=== PATIENT | male | born 1970 | race Caucasian/White ===

== ENCOUNTER 2020-01-01 15:31 | Inpatient (IN) | payer BC ==
[~2020-01-01] VITALS: Ht 188 cm; Wt 103.6 kg
[2020-02-11] VITALS (11 sets, daily range): BP systolic 102–132; BP diastolic 53–74; PULSE 58–87; TEMP 97.2–97.9
[2020-02-11] MEDS ORDERED: CARDIZEM CD 18180 MG PO (05:57)
[2020-02-11] MEDS ORDERED: LIPITOR20 MG PO (05:58)
[2020-02-11] MEDS ORDERED: ONE-A-DAY ESSE1 EACH PO (05:58)
--- NOTE | 2020-02-11 06:10 | NUR ---
The patient ambulated back to [facility] independently using a steady gait and appeared to tolerate the acitivty well. Vital signs obtained. Consent signed. 18G IV started in left hand with one stick, LR infusing without difficulty. Blood obtained from IV start for labs as ordered. The patient does report feeling light-headed and hot after the IV start. The patient's head of bed was lowered and his blanket was removed from his legs. He was also given a cool wash cloth at this time. Heart Reg. Lungs clear. Bowel sounds audible. brought back to be at his bedside. Call light is within reach. Will continue to monitor the patient.
[2020-02-11 06:23] LABS: BASO # 0.1 (0.0-0.2); BASO % 1.2 % (0.0-2.0); EOS # 0.2 (0.0-0.7); EOS % 3.3 % (0-4.0); GRAN # 3.4 (1.4-6.5); GRAN % 55.9 % (42.2-75.2); HEMATOCRIT 47.4 % (42.0-52.0); HEMOGLOBIN 16.6 g/dl (13.5-18.0); LYMPH # 1.7 (1.2-3.4); LYMPH % 27.3 % (20.0-51.0); MEAN CELL VOLUME 86 fl (80.0-100.0); MEAN CORPUSCULAR HEMOGLOBIN 30 pg (27.0-31.0); MEAN CORPUSCULAR HGB CONC 35 g/dl (33.0-37.0); MEAN PLATELET VOLUME 10.1 fl (7.4-10.4); MONO # 0.7 (0.1-0.6); MONO % 11.6 % (1.7-9.3); PLATELET COUNT 345 K/mm3 (130-400); RED BLOOD COUNT 5.54 M/mm3 (4.20-5.60); REDCELL DISTRIBUTION WIDTH-CV 12.9 % (11.5-14.5)
--- NOTE | 2020-02-11 06:30 | NUR ---
Dr. Hendrix was called to notify him that the patient's H&P will need to be updated prior to surgery. He verbalized understanding and states he will be in to update it. The patient's IV Flagyl was started at this time. The patient's remains at his bedside. Will continue to monitor the patient.
[2020-02-11 06:31] LABS: CALCIUM 9.6 mg/dL (8.4-10.2); CREATININE, serum 1.13 (0.66-1.25); POTASSIUM 4.5 mmol/L (3.4-5.0)
--- NOTE | 2020-02-11 06:44 | NUR ---
The patient was taken over to the recovery room via cart to the a nerve block placed prior to surgery. The patient's chart was sent with him for the block. The patient's belongings were taken over to the recovery room and will be transferred up with him to the 3rd floor post operatively.
--- NOTE | 2020-02-11 11:15 | NUR ---
Patient up from OR. Alert and oriented x 3. Assessment complete. Denies pain at this time but states he feels like he needs to pass gas. Having ice chips at this time. Post fluids infusing, Postop VSS. Lap sites x 5 and low transverse incision with edges well approximated. Denies further needs at this time.
--- NOTE | 2020-02-11 19:28 | NUR ---
Patient doing well post op, has been up ambulating in halls with stand by assist and steady gait. Patient tolerating clear liquid diet without complications. Denies further needs at this time. Will report off to assistant tennis coach.
--- NOTE | 2020-02-11 20:45 | NUR ---
Pt. sitting up in bed at this time. Pt. is A&OX3, assessment complete. INT to rt. hand patent. Pt. ambulated in the halls this evening with standby assist. Gait was steady. Abd. lap sites x5 and low transverse noted, all well approximated. Pt. denies pain at this time. Pt. denies further needs, call light within reach.
[2020-02-12 00:18] VITALS: BP 106/57; PULSE 80; TEMP 98.2
[2020-02-12 04:05] VITALS: BP 110/55; PULSE 77; TEMP 98.4
[2020-02-12 06:21] LABS: HEMATOCRIT 40.9 % (42.0-52.0)
[2020-02-12 06:23] LABS: HEMOGLOBIN 14.3 g/dl (13.5-18.0)
[2020-02-12 06:33] LABS: CALCIUM 9.4 mg/dL (8.4-10.2); CREATININE, serum 1.24 (0.66-1.25); MAGNESIUM 1.9 mg/dL (1.6-2.3); PHOSPHOROUS 3.8 mg/dL (2.5-4.5); POTASSIUM 4.6 mmol/L (3.4-5.0)
[2020-02-12 07:08] VITALS: BP 126/83; PULSE 78; TEMP 97.8
--- NOTE | 2020-02-12 08:00 | NUR ---
Patient ambulating in halls independently. Denies pain at this time. Assessment complete. Lap sites x5 and low transverse incision with edges well approximated. Patient states he is passing gas, tolerating diet without difficulties. Denies further needs at this time.
[2020-02-12] MEDS ORDERED: ULTRAM 50MG TAB50 MG PO (09:53)
[2020-02-12 11:31] VITALS: BP 128/72; PULSE 70; TEMP 97.4
--- NOTE | 2020-02-12 11:46 | NUR ---
First visit from the design engineer. No needs right now.
--- NOTE | 2020-02-12 13:15 | NUR ---
Patient tolerating diet, has been up ambulating independently. Continues to deny pain throughout the day. Discharge education provided to patient. Educated on when to call provider and follow up appointments. Patient educated on signs and symptoms of infection. Educated on new medication and medication safety. Denies further needs at this itme. INT to right hand discontinued, catheter tip intact.
== END 2020-02-12 13:15 | disposition home or self-care (01) | DRG 331 ==
LOC: SURG 02-11 05:31 → INPTSU 02-11 05:31 → SURG 02-11 07:30
PROVIDERS: ADMIT Surgery
PROC: 0DTN4ZZ Resection of Sigmoid Colon, Percutaneous Endoscopic Approach (ICD-10-PCS; principal; 2020-02-11 07:30)
DX: K57.32 Diverticulitis of large intestine without perforation or abscess without bleeding (principal); F17.290 Nicotine dependence, other tobacco product, uncomplicated; I10 Essential (primary) hypertension; E78.5 Hyperlipidemia, unspecified
CPT/HCPCS: A4314; A9284; J0690; J1100; J2250; J2370; J2405; J2704; J3010; J7120